=== PATIENT | female | born 1940 | race Two or more races ===

== ENCOUNTER 2020-01-22 09:00 | Inpatient (IN) | payer OTHER ==
[~2020-01-22] VITALS: Ht 160 cm; Wt 66.7 kg
[2020-01-29] MEDS ORDERED: FLONASE16 GM (16:30)
[2020-01-29] MEDS ORDERED: MONTELUKAST SOD10 MG (16:30)
[2020-01-29] MEDS ORDERED: CLARITIN10 MG (16:30)
[2020-01-29] MEDS ORDERED: LEVO-T75 MCG PO (16:30)
[2020-01-29] MEDS ORDERED: TOPIRAMATE50 MG PO (16:31)
[2020-01-29] MEDS ORDERED: GABAPENTIN600 MG PO (16:31)
[2020-01-29] MEDS ORDERED: PREVACID30 MG PO (16:31)
[2020-01-29] MEDS ORDERED: ARICEPT5 MG PO (16:31)
[2020-01-29] MEDS ORDERED: LOSARTAN POTASS50 MG PO (16:31)
[2020-02-02] MEDS ORDERED: OXYC1TAB9 PO (12:46)
[2020-02-02] MEDS ORDERED: HYOSCYAMINE0.125 M1 SL (12:46)
[2020-02-02] MEDS ORDERED: CEFDINIR300 MG PO (12:48)
[2020-02-02] MEDS ORDERED: INTESTINEX680 M1 PO (12:48)
== END 2020-02-02 13:56 | disposition home or self-care (01) | DRG 330 ==
LOC: ADM 09:00 → EDSTATUS 09:00 → SURH 01-29 07:00 → O/R 01-29 09:20 → SURG 01-29 09:20
PROVIDERS: ADMIT Surgery; ATTEND Surgery
PROC: 0DJD8ZZ Inspection of Lower Intestinal Tract, Via Natural or Artificial Opening Endoscopic (ICD-10-PCS; 2020-01-29)
PROC: 4A033R1 Measurement of Arterial Saturation, Peripheral, Percutaneous Approach (ICD-10-PCS; 2020-01-29)
PROC: 0DTN4ZZ Resection of Sigmoid Colon, Percutaneous Endoscopic Approach (ICD-10-PCS; principal; 2020-01-29 07:00)
DX: K57.20 Diverticulitis of large intestine with perforation and abscess without bleeding (principal); N32.1 Vesicointestinal fistula; I11.9 Hypertensive heart disease without heart failure; E03.8 Other specified hypothyroidism; G47.33 Obstructive sleep apnea (adult) (pediatric); I25.10 Atherosclerotic heart disease of native coronary artery without angina pectoris; Z53.1 Procedure and treatment not carried out because of patient's decision for reasons of belief and group pressure